=== PATIENT | male | born 1975 | race African-American/Black ===

== ENCOUNTER 2019-04-30 22:45 | Emergency (ER) | payer OTHER ==
[~2019-04-30] VITALS: Ht 177.8 cm; Wt 72.6 kg
[2019-04-30] MEDS ORDERED: Isovue-300 100ml vial INJ PRN (23:00)
--- NOTE | 2019-04-30 23:27 | Emergency Room Report ---
History of Present Illness General Chief Complaint: Abdominal Pain Source: Patient Present Illness HPI Patient presents with 5 days of abdominal pain vomiting and hematochezia. He has a history of ulcerative colitis. He has not been able to tolerate oral intake recently. He is not taking any medication for his ulcerative colitis. The pain has been severe. He was transported by paramedics here. According to his significant other he is been altered today. He denies any drugs or alcohol ingestion (see tox). Patient has been less responsive over the last few hours. Pain is rated 10/10 burning and aching throughout his entire abdomen. No fevers, chills, sore throat, chest pain, palpitations, dysuria, shortness of breath, joint pain, rashes, depression, anxiety, visual changes, headache. Allergies: Coded Allergies: No Known Allergies (Unverified , 04/30/19) Patient History Past Medical History: see triage record Social History: Denies: alcohol use, drug use - see tox Social History Narrative with girlfriend - from [facility] Reviewed Nursing Documentation: PMH: Agreed; PSxH: Agreed Nursing Documentation-PMH Hx Gastrointestinal Problems: Yes - ULCERATIVE COLITIS Review of Systems All Other Systems: negative except mentioned in HPI Physical Exam Vital Signs Date Time Temp Pulse Resp B/P (MAP) Pulse Ox O2 Delivery O2 Flow Rate FiO2 04/30/19 22:46 98.4 88 16 147/96 (113) 98 Room Air Sp02 EP Interpretation: reviewed, normal General Appearance: no apparent distress, lethargic Head: normocephalic Eyes: bilateral eye PERRL, bilateral eye EOMI, bilateral eye Scleral Injection ENT: moist mucus membranes Neck: supple Respiratory: lungs clear, normal breath sounds Cardiovascular #1: regular rate, rhythm Cardiovascular #2: 2+ radial (R) Gastrointestinal: no mass, no rebound, guarding - Diffuse, tenderness, decreased bowel sounds, scaphoid Genitourinary: no CVA tenderness Musculoskeletal: back normal, gait/station normal, normal range of motion Neurologic: motor strength/tone normal, sensory intact, oriented - Lethargic Psychiatric: depressed affect Skin: no rash Medical Decision Making Diagnostic Impression: Primary Impression: Sepsis Qualified Codes: A41.9 - Sepsis, unspecified organism Additional Impressions: Amphetamine abuse Ulcerative colitis Qualified Codes: K51.911 - Ulcerative colitis, unspecified with rectal bleeding ER Course Presents with lethargy vomiting and hematochezia with abdominal pain with history of ulcerative colitis. Differential includes exacerbation ulcerative colitis, severe dehydration, sepsis, urinary tract infection amongst others. We need to exclude also possible drug ingestion. Patient improved slightly with IV hydration. More responsive and able to tolerate oral contrast. EKG normal sinus rhythm rate of [address]-T wave changes CXR no infiltrates. WBC normal Lactate elevated. Tox + amphetamine. Sepsis re-evaluation 0:35 - Improved mentation, initial lactic acid elevated. Increased fluid bolus and antibiotics ordered. Improved mentation. C/O pain. Belly is soft. Morphine ordered. Await CT abdomen. Colitis. Discussed with Dr. Andrew who accepts the patient. Laboratory Tests Test 04/30/19 23:00 04/30/19 23:11 05/01/19 00:53 05/01/19 01:30 White Blood Count 7.4 K/UL (4.8-10.8) Red Blood Count 5.10 M/UL (4.70-6.10) Hemoglobin 14.8 G/DL (14.2-18.0) Hematocrit 43.6 % (42.0-52.0) Mean Corpuscular Volume 85 FL (80-99) Mean Corpuscular Hemoglobin 28.9 PG (27.0-31.0) Mean Corpuscular Hemoglobin Concent 33.9 G/DL (32.0-36.0) Red Cell Distribution Width 12.8 % (11.6-14.8) Platelet Count 317 K/UL (150-450) Mean Platelet Volume 5.9 FL (6.5-10.1) L Neutrophils (%) (Auto) 53.8 % (45.0-75.0) Lymphocytes (%) (Auto) 15.6 % (20.0-45.0) L Monocytes (%) (Auto) 19.0 % (1.0-10.0) H Eosinophils (%) (Auto) 8.7 % (0.0-3.0) H Basophils (%) (Auto) 2.8 % (0.0-2.0) H Prothrombin Time 10.3 SEC (9.30-11.50) Prothrombin Time INR 1.0 (0.9-1.1) PTT 27 SEC (23-33) Sodium Level 139 MMOL/L (136-145) Potassium Level 3.7 MMOL/L (3.5-5.1) Chloride Level 104 MMOL/L (98-107) Carbon Dioxide Level 28 MMOL/L (21-32) Anion Gap 7 mmol/L (5-15) Blood Urea Nitrogen 9 mg/dL (7-18) Creatinine 1.2 MG/DL (0.55-1.30) Estimate Glomerular Filtration Rate > 60 mL/min (>60) Glucose Level 116 MG/DL (74-106) H Calcium Level 9.7 MG/DL (8.5-10.1) Magnesium Level 2.0 MG/DL (1.8-2.4) Total Bilirubin 0.5 MG/DL (0.2-1.0) Aspartate Amino Transferase (AST) 18 U/L (15-37) Alanine Aminotransferase (ALT) 21 U/L (12-78) Alkaline Phosphatase 126 U/L (46-116) H Total Creatine Kinase 103 U/L (26-308) Troponin I 0.000 ng/mL (0.000-0.056) Total Protein 8.2 G/DL (6.4-8.2) Albumin 3.7 G/DL (3.4-5.0) Globulin 4.5 g/dL Albumin/Globulin Ratio 0.8 (1.0-2.7) L Lipase 142 U/L (73-393) Thyroid Stimulating Hormone (TSH) 0.737 uiU/mL (0.358-3.740) Serum Alcohol < 3 mg/dL Lactic Acid Level 3.10 mmol/L (0.4-2.0) H 1.70 mmol/L (0.66-2.22) Urine Color Pale yellow Urine Appearance Clear Urine pH 5 (4.5-8.0) Urine Specific [place] 1.015 (1.005-1.035) Urine Protein Negative (NEGATIVE) Urine Glucose (UA) Negative (NEGATIVE) Urine Ketones Negative (NEGATIVE) Urine Blood 1+ (NEGATIVE) H Urine Nitrite Negative (NEGATIVE) Urine Bilirubin Negative (NEGATIVE) Urine Urobilinogen Normal MG/DL (0.0-1.0) Urine Leukocyte Esterase Negative (NEGATIVE) Urine RBC 0-2 /HPF (0 - 0) H Urine WBC 0-2 /HPF (0 - 0) Urine Squamous Epithelial Cells None /LPF (NONE/OCC) Urine Bacteria Occasional /HPF (NONE) Urine Opiates Screen Negative (NEGATIVE) Urine Barbiturates Screen Negative (NEGATIVE) Phencyclidine (PCP) Screen Negative (NEGATIVE) Urine Amphetamines Screen Positive (NEGATIVE) H Urine Benzodiazepines Screen Negative (NEGATIVE) Urine Cocaine Screen Negative (NEGATIVE) Urine Marijuana (THC) Screen Negative (NEGATIVE) EKG Diagnostic Results Rate: normal Rhythm: NSR ST Segments: no acute changes ASA given to the pt in ED: Yes Rhythm Strip Diag. Results EP Interpretation: yes Rhythm: NSR, no PVC's, no ectopy Chest X-Ray Diagnostic Results Chest X-Ray Diagnostic Results : Chest X-Ray Ordered: Yes # of Views/Limited/Complete: 1 View Indication: Other EP Interpretation: Yes Interpretation: no consolidation, no effusion, no pneumothorax Impression: No acute disease Electronically Signed by: My electronic CT/MRI/US Diagnostic Results CT/MRI/US Diagnostic Results : Imaging Test Ordered: Abdomen pelvis Impression IMPRESSION: There is some subtle inflammatory changes and thickening of the wall the colon raising the possibility of colitis. Bladder wall thickening is also noted. Correlation is required to exclude cystitis Last Vital Signs Date Time Temp Pulse Resp B/P (MAP) Pulse Ox O2 Delivery O2 Flow Rate FiO2 05/01/19 02:41 99.5 92 18 158/90 100 Room Air Status: improved Disposition: XFER SHT-TRM HOSP Condition: Serious Referrals: [facility],REFERRING (PCP) Raymond Flaherty MD Apr 30, 2019 23:27
[2019-04-30 23:40] VITALS: BP 148/97
--- NOTE | 2019-04-30 23:40 | NUR ---
ED Nurse Note: noted pt's temp 100.3, ERMD notified.
--- NOTE | 2019-04-30 23:40 | NUR ---
ED Nurse Note: pt brought in by [facility] c/c abd pain and bright red bleeding in stool, pt reports he's been having diarrhea for a while, pt reports he gets chronic colitis. pt reports nausea but no active dry heaves nor vomiting at this time, no diarrhea noted at this time as well, vss, NSR on manager monitoring, will cont monitor.
[2019-04-30 23:43] LABS: BASOPHILS % (AUTO) 2.8 % (0.0-2.0); EOSINOPHILS % (AUTO) 8.7 % (0.0-3.0); HEMATOCRIT 43.6 % (42.0-52.0); HEMOGLOBIN 14.8 G/DL (14.2-18.0); LYMPHOCYTES % (AUTO) 15.6 % (20.0-45.0); MEAN CORPUSCULAR VOLUME 85 FL (80-99); NEUTROPHILS % (AUTO) 53.8 % (45.0-75.0); PLATELET COUNT 317 K/UL (150-450); RED CELL DISTRIBUTION WIDTH 12.8 % (11.6-14.8); WHITE BLOOD COUNT 7.4 K/UL (4.8-10.8)
[2019-04-30 23:54] LABS: ANION GAP 7 mmol/L (5-15); BLOOD UREA NITROGEN 9 mg/dL (7-18); CALCIUM 9.7 MG/DL (8.5-10.1); CARBON DIOXIDE 28 MMOL/L (21-32); CHLORIDE 104 MMOL/L (98-107); CREATININE 1.2 MG/DL (0.55-1.30); POTASSIUM 3.7 MMOL/L (3.5-5.1); SODIUM 139 MMOL/L (136-145)
--- NOTE | 2019-05-01 | NUR ---
ED Nurse Note: pt started drinking redi-cat, central service tech notified.
[2019-05-01 00:06] LABS: ALANINE AMINOTRANSFERASE 21 U/L (12-78); ALBUMIN 3.7 G/DL (3.4-5.0); ALBUMIN/GLOBULIN RATIO 0.8 (1.0-2.7); ALKALINE PHOSPHATASE 126 U/L (46-116); ASPARTATE AMINO TRANSFERASE 18 U/L (15-37); BILIRUBIN,TOTAL 0.5 MG/DL (0.2-1.0); CREATINE KINASE 103 U/L (26-308)
--- NOTE | 2019-05-01 00:15 | NUR ---
ED Nurse Note: pt reports pain on abd area, ERMD notified, no new orders received at this time, will cont monitor.
--- NOTE | 2019-05-01 00:30 | NUR ---
ED Nurse Note: pt resting at this time, vss, will cont monitor. iv intact and fluids running. safety precautions in place.
[2019-05-01 00:42] VITALS: BP 152/97
[2019-05-01] MEDS ORDERED: Piperacillin/Tazobactam 3.375 GM in NS 110 ML IVPB ONE (00:45)
[2019-05-01] MEDS ORDERED: Sodium Chloride 2,200 ML IVLG ONE (00:45)
--- NOTE | 2019-05-01 01:00 | NUR ---
ED Nurse Note: PT OFF TO CT, CONSENT FORM SIGNED.
[2019-05-01 01:18] LABS: APPEARANCE,URINE CLEAR; BILIRUBIN, URINE NEGATIVE (NEGATIVE); COLOR,URINE PALE YELLOW; GLUCOSE, URINE (UA) NEGATIVE (NEGATIVE); KETONES,URINE NEGATIVE (NEGATIVE); LEUKOCYTE ESTERASE ,URINE NEGATIVE (NEGATIVE); NITRITE,URINE NEGATIVE (NEGATIVE); PH,URINE 5 (4.5-8.0); PROTEIN,URINE NEGATIVE (NEGATIVE); UROBILINOGEN,URINE NORMAL MG/DL (0.0-1.0)
[2019-05-01 01:42] VITALS: BP 157/86
--- NOTE | 2019-05-01 01:45 | NUR ---
ED Nurse Note: ERMD at the bedside, pt reports pain on abd area 10/10, will wait for further orders.
--- NOTE | 2019-05-01 01:55 | Diagnostic Imaging Report ---
Clinical Indication: Abdominal pain for one day Technique: Patient given oral contrast. IV administration nonionic contrast. Venous phase spiral acquisition obtained through the abdomen and pelvis. Multiplanar reconstructions were generated. Total dose length product 741.67 mGycm. CTDIvol(s) 15.23 mGy. Dose reduction achieved using automated exposure control Comparison: none Findings: Note that the top of the liver is cut off exam The appendix is not definitely visualized, but no findings to suggest acute appendicitis are evident. The ascending colon is fluid-filled. There is equivocal mild wall thickening of the descending and sigmoid colon as well as of the rectum. No small bowel distention. No small bowel wall thickening. The distal esophagus, stomach, duodenum are unremarkable. No free or loculated intraperitoneal gas or fluid is evident. The liver demonstrates a 1 cm cyst in segment 8. There is suggestion of periportal edema. No other focal liver abnormality. The gallbladder is nondistended but wall appears somewhat edematous. No gallstones are evident. The pancreas, spleen, adrenals, kidneys are unremarkable. No retroperitoneal or mesenteric mass or adenopathy. No renal or ureteral calculi. No hydronephrosis or hydroureter. The bladder is unremarkable. No pelvic mass or adenopathy. The included lung bases demonstrate some posterior dependent atelectatic changes. The bones are unremarkable. Impression: Wall thickening of the ascending and distal colon, raises concern for colitis Periportal edema. This is a nonspecific finding, can be seen in acute hepatic inflammation as well as right heart failure, among other possibilities Equivocally edematous gallbladder wall, probably artifact of under distention. No evidence for gallstones. Consider sonography for further evaluation if there is high clinical suspicion of gallbladder disease Posterior dependent pulmonary atelectatic changes This essentially agrees with the preliminary interpretation provided overnight by [email or web address] teleradiology service, with minor variation. The CT scanner at [facility] is accredited by the [employer] and the scans are performed using protocols designed to limit radiation exposure to as low as reasonably achievable to attain images of sufficient resolution adequate for diagnostic evaluation.
[2019-05-01] MEDS ORDERED: Morphine Sulfate 2mg/ml Inj(IV/IM USE ONLY) IVP ONE (02:00)
--- NOTE | 2019-05-01 02:30 | NUR ---
ED Nurse Note: REPORT GIVEN TO KYLEE HANNAH FROM [facility]. PT PENDING XFR TO [facility].
[2019-05-01 02:41] VITALS: BP 158/90
--- NOTE | 2019-05-01 02:41 | NUR ---
ED Nurse Note: EMS AT THE BEDSIDE FOR TRANSFER, REPORT GIVEN TO EMS-[facility] STAFF AND ENDORSED CARE, PT VSS, IV INTACT AND PATENT, NSR ON INSIDE POLISHER. ALL BELONGINGS ENDORSED TO EMS STAFF.
--- NOTE | 2019-05-01 13:06 | Diagnostic Imaging Report ---
Indication: Shortness of breath Technique: One view of the chest Comparison: none Findings: Lungs and pleural spaces are clear. Heart size is normal. Impression: No acute process
--- NOTE | 2019-05-01 19:52 | Cardiology Report ---
APPROVED REPORT EKG Measurement Heart [id number] Normal sinus rhythm with sinus arrhythmia Normal ECG
== END 2019-05-01 02:41 | disposition short-term general hospital (02) ==
LOC: EDBD 22:45 → EMR 23:01 → EDBEDREQSVC 05-01 00:39 → EMR 05-01 02:41
DX: A41.9 Sepsis, unspecified organism (principal); K51.911 Ulcerative colitis, unspecified with rectal bleeding; F15.10 Other stimulant abuse, uncomplicated
CPT/HCPCS: 36415; 71045; 74177; 80053; 80307; 80329; 81003; 82550; 82962; 83605; 83690; 83735; 84443; 84484; 85025; 85610; 85730; 86900; 86901; 87040; 93005; 96361; 96365; 96368; 96375; 96376; 99285; J2270; J2405; J2543; Q9967; S0028